=== PATIENT | female | born 1950 | race Caucasian/White ===

== ENCOUNTER 2021-05-14 14:14 | Emergency (ER) | payer MEDICARE, OTHER ==
[~2021-05-14 14:14] MED LIST: CARAFATE 1 GM TA1 GM PO; DESONIDE CREAM TOP; DEXILANT60 MG PO; ELAVIL 50 MG TA50 MG PO; HYZAAR 100-251 EACH PO; LASIX20 MG PO; MIRALAX 119 GR119 GM PO; PERCOCET 5-3251 EACH PO; PIMECROLIMUS TOP; PLAQUENIL 200200 MG PO; SINGULAIR10 MG PO; SPIRIVA INH; VENTOLIN HFA 66.7 GM INH; XYZAL5 MG PO
[2021-05-14] MEDS ORDERED: HYDROCODON-ACE1 EAC4 PO (20:10)
[2021-05-26] MEDS ORDERED: MELATONIN3 M3 PO (06:56)
[2021-05-26] MEDS ORDERED: VALIUM5 MG PO (06:56)
[2021-05-26] MEDS ORDERED: EFFER-K 10 MEQ10 MEQ PO (06:57)
[2021-05-26] MEDS ORDERED: ROBAXIN 750 MG750 MG PO (06:58)
[2021-05-26] MEDS ORDERED: SYSTANE COMPLET10 ML OP (06:58)
[2021-05-26] MEDS ORDERED: HYDROCODON-ACE1 EAC6 PO (07:23)
== END 2021-05-14 20:59 | disposition home or self-care (01) ==
LOC: ER1 14:14
DX: S52.531A Colles' fracture of right radius, initial encounter for closed fracture (principal); S52.611A Displaced fracture of right ulna styloid process, initial encounter for closed fracture; S52.571A Other intraarticular fracture of lower end of right radius, initial encounter for closed fracture; S51.812A Laceration without foreign body of left forearm, initial encounter; Z23 Encounter for immunization; Z90.49 Acquired absence of other specified parts of digestive tract; F17.200 Nicotine dependence, unspecified, uncomplicated; I10 Essential (primary) hypertension; J45.909 Unspecified asthma, uncomplicated; W19.XXXA Unspecified fall, initial encounter
CPT/HCPCS: 70450; 72125; 72131; 72170; 73080; 73110; 90471; 90715; 96372; 99284; J2270

== ENCOUNTER → 2021-05-26 | Day surgery (SDC) | payer MEDICARE, OTHER ==
[~2021-05-26] VITALS: Ht 157.5 cm; Wt 86.2 kg
[~2021-05-26] MED LIST changes: +EFFER-K 10 MEQ10 MEQ PO; +HYDROCODON-ACE1 EAC4 PO; +HYDROCODON-ACE1 EAC6 PO; +MELATONIN3 M3 PO; +ROBAXIN 750 MG750 MG PO; +SYSTANE COMPLET10 ML OP; +VALIUM5 MG PO
[2021-05-26 06:45] LABS: HEMOGLOBIN 11.5 gm/dl (12.3-15.3); RED BLOOD COUNT 3.8 M/UL (4.00-5.10); WHITE BLOOD COUNT 4.4 K/UL (4.5-11.0)
== END | disposition home or self-care (01) ==
LOC: OR 05-25 07:30
PROVIDERS: Orthopaedic Surgery
DX: S52.501A Unspecified fracture of the lower end of right radius, initial encounter for closed fracture (principal); I10 Essential (primary) hypertension; J44.9 Chronic obstructive pulmonary disease, unspecified; E66.01 Morbid (severe) obesity due to excess calories; F17.210 Nicotine dependence, cigarettes, uncomplicated; Z88.6 Allergy status to analgesic agent; Z88.1 Allergy status to other antibiotic agents; Z91.013 Allergy to seafood; Z79.891 Long term (current) use of opiate analgesic; Z91.040 Latex allergy status; Z79.899 Other long term (current) drug therapy; W19.XXXA Unspecified fall, initial encounter
CPT/HCPCS: 36415; 73100; 76000; 80048; 85027; 94664; C1713; J0171; J0690; J1100; J2001; J2405; J2704; J2795; J3010; J7030; J7120